=== PATIENT | female | born 1960 | race Caucasian/White ===

== ENCOUNTER 2018-04-25 17:08 | Emergency (ER) | payer MEDICAID, OTHER ==
[2018-04-25 20:17] LABS: ADD MAN DIFF? NO
[2018-04-25 20:21] LABS: BASOPHILS % 0.4 % (0.0-2.0); EOSINOPHILS # 0.3 10^3/ul (0.0-0.5); EOSINOPHILS % 3.2 % (0.0-7.0); HEMATOCRIT 33.2 % (37.0-47.0); HEMOGLOBIN 11.3 g/dl (12.0-16.0); IMMATURE GRANS #M 0.02 10^3/ul; IMMATURE GRANS % (M) 0.3 %; LYMPHOCYTES # 2.2 10^3/ul (0.8-2.9); LYMPHOCYTES % 28.1 % (15.0-51.0); MEAN CORPUSCULAR HEMOGLOBIN 28.1 pg (29.0-33.0); MEAN CORPUSCULAR VOLUME 82.6 fl (82.0-101.0); MEAN PLATELET VOLUME 8.1 fl (7.4-10.4); MONOCYTE # 0.3 10^3/ul (0.3-0.9); NEUTROPHIL # 4.9 10^3/ul (1.6-7.5); PLATELET COUNT 206 10^3/UL (140-415); RED BLOOD COUNT 4.02 10^6/ul (4.20-5.40); RED CELL DISTRIBUTION WIDTH 18.8 % (11.5-14.5)
[2018-04-25 20:21] LABS: WHITE BLOOD COUNT 7.7 10^3/ul (4.8-10.8)
[2018-04-25 20:38] LABS: ANION GAP 17 (8-16); BLOOD UREA NITROGEN 16 mg/dl (7-20); CALCIUM 9.6 mg/dl (8.4-10.2); CARBON DIOXIDE 28 mmol/L (21-31); CHLORIDE 101 mmol/L (97-110); CREATININE 1.22 mg/dl (0.44-1.00); GLUCOSE 212 mg/dl (70-220); POTASSIUM 4.5 mmol/L (3.5-5.1); SODIUM 141 mmol/L (135-144)
[2018-04-25 20:50] LABS: B-TYPE NATRIURETIC PEPTIDE 75 PG/ML (0-125); TROPONIN-I < 0.010 ng/ml (0.000-0.120)
[2018-04-25] MEDS: ASPIRIN 325 MG TAB PO (21:01)
== END 2018-04-25 22:38 | disposition home or self-care (01) ==
LOC: E/R 17:08
DX: N28.9 Disorder of kidney and ureter, unspecified (principal); R07.89 Other chest pain; R40.2142 Coma scale, eyes open, spontaneous, at arrival to emergency department; R40.2252 Coma scale, best verbal response, oriented, at arrival to emergency department; R40.2362 Coma scale, best motor response, obeys commands, at arrival to emergency department; J45.901 Unspecified asthma with (acute) exacerbation; N18.4 Chronic kidney disease, stage 4 (severe); F17.210 Nicotine dependence, cigarettes, uncomplicated; Z79.82 Long term (current) use of aspirin; Z79.84 Long term (current) use of oral hypoglycemic drugs
CPT/HCPCS: 36415; 71045; 80048; 83880; 84484; 85025; 93005; 99285-25